=== PATIENT | male | born 2000 | race Caucasian/White ===

== ENCOUNTER 2020-10-08 00:41 | Emergency (ER) | payer OTHER ==
[~2020-10-08] VITALS: Ht 185.4 cm; Wt 65.9 kg
[2020-10-08 00:49] VITALS: TEMP 98.5
[2020-10-08 02:25] VITALS: BP 127/85; PULSE 91
== END 2020-10-08 02:25 | disposition home or self-care (01) ==
LOC: COL.ER 00:41
DX: L50.9 Urticaria, unspecified (principal)